=== PATIENT | female | born 1980 | race Caucasian/White ===

== ENCOUNTER 2025-05-28 13:54 | Emergency (ER) | payer MEDICAID ==
[~2025-05-28] VITALS: Ht 167.6 cm; Wt 58.0 kg
[2025-05-28 14:07] VITALS: BP 126/82; PULSE 80; RESP 16; TEMP 36.7; O2SAT 98
== END 2025-05-28 16:48 | disposition left against medical advice (07) ==
LOC: ER 13:54
DX: Z00.00 Encounter for general adult medical examination without abnormal findings (principal); Z53.21 Procedure and treatment not carried out due to patient leaving prior to being seen by health care provider
CPT/HCPCS: 99281